=== PATIENT | female | born 1945 | race Caucasian/White ===

== ENCOUNTER 2017-06-28 18:48 | Emergency (ER) | payer MEDICARE, OTHER ==
[~2017-06-28] VITALS: Ht 160 cm; Wt 65.0 kg
[~2017-06-28 18:48] MED LIST: ADVAI100I PO; ALBU1AER INH; ATOR20TA PO; CITA20TA4 PO; LORA0.5T PO; PROT40TA PO; TRAZ50TA4 PO; VIST25CA PO
[2017-06-28 19:14] VITALS: BP 126/58; PULSE 69; RESP 20; TEMP 98.3; O2SAT 97
--- NOTE | 2017-06-28 19:26 | PD ---
HPI Chief Complaint: Respiratory Distress Time Seen by Provider: 19:20 Travel History International Travel<30 days: No Contact w/Intl Traveler<30days: No Traveled to known affect area: No History of Present Illness HPI 71-year-old female presents to the emergency department from home by EMS transport for complaint of nausea inability to eat with anorexia chronic lower abdominal pain shortness of breath intermittent left-sided chest pain and chronic low back pain. Patient has history of COPD anxiety depression dyslipidemia GERD peptic ulcer disease status post partial hysterectomy and lumpectomy ongoing tobacco use and denies any known history of hypertension diabetes or CAD. No new pleuritic pain or hemoptysis. No new lower extremity pain or swelling. No report of long distance travel protracted bedrest her surgical procedure. Patient denies any fever or chills. Patient has intermittent issues with constipation. Patient was able pass a small amount of stool today and no gross blood or melena. Patient's had no hemoptysis or hematemesis. Patient states she's had no urinary issues. Patient rates her overall discomfort 7/10 in intensity. Denies any chest pain at this time. Symptoms have been present 3 days. PFSH Past Medical History Narrative Medical COPD bipolar anxiety depression dyslipidemia GERD peptic ulcer disease chronic back pain partial hysterectomy tobaccoism;nursing notes reviewed Asthma: Yes Autoimmune Disease: No Blood Disorders: No Bipolar Disorder: Yes Anxiety: Yes Depression: Yes Cancer: No Cardiovascular Problems: Yes High Cholesterol: Yes Cirrhosis: Yes COPD: Yes Diabetes: No Diminished Hearing: No Endocrine: No Gastrointestinal Disorders: Yes GERD: Yes Genitourinary: Yes Headaches: Yes Immune Disorder: No Kidney Stones: No Musculoskeletal: Yes (upper back pain ) Neurologic: No Psychiatric: Yes Reproductive: Yes (partial hyst. ) Respiratory: Yes (COPD) Seizures: No Sleep Apnea: No PNEUMOCCOCAL Vaccine (Year): 2 Menopausal: Yes : 2 Para: 2 Past Surgical History Gynecologic Surgery: Yes (partial hystectomy ) Hysterectomy: Yes Other Surgery: Yes (LUMPECTOMY) Social History Alcohol Use: No Tobacco Use: Yes (1/2 PPD) Substance Use: No Allergies-Medications (Allergen,Severity, Reaction): Coded Allergies: ampicillin (Unverified Allergy, Severe, 05/12/17) hydrocodone (Unverified Allergy, Severe, ITCHING, 05/12/17) oxycodone (Unverified Allergy, Severe, ITCHING, 05/12/17) amoxicillin (Unverified Allergy, Mild, Itching, 05/12/17) Reported Meds & Prescriptions Reported Meds & Active Scripts Active Phenergan (Promethazine HCl) 25 Mg Tablet 25 Mg PO Q6H PRN Medrol Dosepak (Methylprednisolone) 4 Mg Dspk 4 Mg PO DIRECTED Per Pharmacist direction Protonix (Pantoprazole Sodium) 40 Mg Tab 40 Mg PO BID 30 Days Vistaril (Hydroxyzine Pamoate) 25 Mg Cap 25 Mg PO Q8H PRN Trazodone Hcl (Trazodone HCl) 50 Mg Tab 50 Mg PO HS 5 Days Reported Lorazepam 0.5 Mg Tab 0.5 Mg PO TID Citalopram Hydrobromide 20 Mg Tab 20 Mg PO DAILY Proair Hfa (Albuterol Sulfate) 8.5 Gm Aero 2 Puff INH Q6 * SHAKE WELL BEFORE USE * Advair Diskus 100/50 (Salmeterol Xinafoate/Fluticasone) Fluticasone/Salmeterol 100/50 Inh 1 Puff PO BID Atorvastatin 20 mg tab (Atorvastatin Calcium) 20 Mg Tab 20 Mg PO HS Review of Systems Except as stated in HPI: all other systems reviewed are Neg General / Constitutional: No: Fever, Chills Eyes: No: Visual changes HENT: No: Headaches, Congestion Cardiovascular: Positive: Chest Pain or Discomfort, No: Diaphoresis ( intermittent none now), Syncope, Dyspnea on exertion, Claudication Respiratory: Positive: Cough, Shortness of Breath, Wheezing Gastrointestinal: Positive: Nausea, Abdominal Pain, Constipation, Loss of Appetite, No: Vomiting, Diarrhea, Hematemesis, Hematochezia Genitourinary: No: Urgency, Frequency, Dysuria, Flank Pain Musculoskeletal: No: Myalgias, Arthralgias Skin: No Rash Neurologic: No: Weakness, Dizziness, Syncope, Focal Abnormalities, Coordination Problem Psychiatric: No: Anxiety Endocrine: No: Heat Intolerance Hematologic/Lymphatic: No: Easy Bruising Physical Exam Narrative GENERAL: Well-developed thin female in no acute distress no respiratory distress SKIN: Warm and dry. HEAD: Normocephalic. EYES: No scleral icterus. No injection or drainage. NECK: Supple, trachea midline. No JVD or lymphadenopathy. CARDIOVASCULAR: Regular rate and rhythm without murmurs, gallops, or rubs. RESPIRATORY: Breath sounds equal bilaterally diffuse expiratory wheezing. No accessory muscle use. GASTROINTESTINAL: Abdomen soft, non-tender, nondistended. Rectal exam: No fissure no prolapsed hemorrhoids; normal sphincter tone; brown mucus on exam glove, Hemoccult negative no gross blood. MUSCULOSKELETAL: No cyanosis, or edema. BACK: Nontender without obvious deformity. No CVA tenderness. Data Data Last Documented VS Vital Signs Date Time Temp Pulse Resp B/P (MAP) Pulse Ox O2 Delivery O2 Flow Rate FiO2 06/28/17 21:15 67 20 111/55 (73) 96 Nasal Cannula 2.00 06/28/17 19:14 98.3 Orders Orders Complete Blood Count With Diff (06/28/17 19:21) Comprehensive Metabolic Panel (06/28/17 19:21) B-Type Natriuretic Peptide (06/28/17 19:21) Magnesium (Mg) (06/28/17 19:21) Ckmb (Isoenzyme) Profile (06/28/17 19:21) Troponin I (06/28/17 19:21) Urinalysis - C+S If Indicated (06/28/17 19:21) Iv Access Insert/Monitor (06/28/17 19:21) Electrocardiogram (06/28/17 19:21) Ecg Monitoring (06/28/17 19:21) Oximetry (06/28/17 19:21) Oxygen Administration (06/28/17 19:21) Chest, Single Ap (06/28/17 19:21) Sodium Chloride 0.9% Flush (Ns Flush) (06/28/17 19:30) Albuterol-Ipratropium Neb (Duoneb Neb) (06/28/17 19:30) Ondansetron Inj (Zofran Inj) (06/28/17 19:30) CKMB (06/28/17 19:36) CKMB% (06/28/17 19:36) Sodium Chlorid 0.9% 500 Ml Inj (Ns 500 M (06/28/17 21:30) Labs Laboratory Tests Test 06/28/17 19:36 06/28/17 20:09 06/28/17 20:15 Blood Urea Nitrogen 18 MG/DL Creatinine 1.05 MG/DL Random Glucose 99 MG/DL Total Protein 6.9 GM/DL Albumin 3.8 GM/DL Calcium Level 8.9 MG/DL Magnesium Level 1.9 MG/DL Alkaline Phosphatase 103 U/L Aspartate Amino Transf (AST/SGOT) 22 U/L Alanine Aminotransferase (ALT/SGPT) 25 U/L Total Bilirubin 0.4 MG/DL Sodium Level 141 MEQ/L Potassium Level 3.9 MEQ/L Chloride Level 108 MEQ/L Carbon Dioxide Level 22.0 MEQ/L Anion Gap 11 MEQ/L Estimat Glomerular Filtration Rate 52 ML/MIN Total Creatine Kinase 127 U/L Creatine Kinase MB 2.7 NG/ML Troponin I LESS THAN 0.02 NG/ML Urine Color YELLOW Urine Turbidity HAZY Urine pH 6.0 Urine Specific Parachute 1.023 Urine Protein TRACE mg/dL Urine Glucose (UA) NEG mg/dL Urine Ketones 40 mg/dL Urine Occult Blood NEG Urine Nitrite NEG Urine Bilirubin NEG Urine Urobilinogen LESS THAN 2.0 MG/DL Urine Leukocyte Esterase NEG Urine RBC 6 /hpf Urine WBC 2 /hpf Urine Squamous Epithelial Cells 2 /hpf Urine Amorphous Sediment RARE Urine Bacteria OCC /hpf Urine Mucus MOD /lpf Microscopic Urinalysis Comment CULT NOT INDICATED White Blood Count 8.0 TH/MM3 Red Blood Count 4.15 MIL/MM3 Hemoglobin 9.6 GM/DL Hematocrit 30.5 % Mean Corpuscular Volume 73.4 FL Mean Corpuscular Hemoglobin 23.1 PG Mean Corpuscular Hemoglobin Concent 31.5 % Red Cell Distribution Width 19.0 % Platelet Count 206 TH/MM3 Mean Platelet Volume 7.5 FL Neutrophils (%) (Auto) 78.6 % Lymphocytes (%) (Auto) 16.3 % Monocytes (%) (Auto) 3.9 % Eosinophils (%) (Auto) 0.4 % Basophils (%) (Auto) 0.8 % Neutrophils # (Auto) 6.3 TH/MM3 Lymphocytes # (Auto) 1.3 TH/MM3 Monocytes # (Auto) 0.3 TH/MM3 Eosinophils # (Auto) 0.0 TH/MM3 Basophils # (Auto) 0.1 TH/MM3 CBC Comment DIFF FINAL Differential Comment B-Type Natriuretic Peptide LESS THAN 2 PG/ML MDM Medical Decision Making Medical Screen Exam Complete: Yes Emergency Medical Condition: Yes Medical Record Reviewed: Yes Interpretation(s) CBC & BMP Diagram 06/28/17 19:36 Total Protein 6.9, Albumin 3.8, Calcium Level 8.9, Magnesium Level 1.9, Alkaline Phosphatase 103, Aspartate Amino Transf (AST/SGOT) 22, Alanine Aminotransferase (ALT/SGPT) 25, Total Bilirubin 0.4 06/28/17 20:15 Vital Signs Date Time Temp Pulse Resp B/P (MAP) Pulse Ox O2 Delivery O2 Flow Rate FiO2 06/28/17 19:39 98 Nasal Cannula 2.00 06/28/17 19:39 98 Nasal Cannula 2.00 06/28/17 19:35 98 Nasal Cannula 2.00 06/28/17 19:14 98.3 69 20 126/58 (80) 97 cxr: nad, per reading radiologist Dr. Riggins reviewed by me EKG: Sinus rhythm rate [address] segment elevation or injury pattern or ectopy noted CK: 127, not elevated; troponin I less than 0.02, not elevated BNP less than 2 not elevated Differential Diagnosis Dyspnea, exacerbation COPD, pneumonia, ACS, constipation, anemia, atypical chest pain, abdominal pain, appendicitis, diverticulitis, UTI, sepsis Narrative Course Patient placed on swimming professor IV access obtained specimens collected and sent for resulting EKG ordered patient ordered DuoNeb updraft 1 for wheezing and Zofran for complaint of nausea EKG: Sinus rhythm rate [address] segment elevation or injury pattern or ectopy noted Patient identified to have anemia by CBC was automated differential hemoglobin 9.61 year ago was 10.6 rectal exam is negative for occult blood and indices are consistent with chronic anemia Metabolic panel values grossly normal range creatinine however mildly elevated 1.05 Patient up out of bed ambulating in room no complaint of pain does complain of some generalized weakness: Has not eating today secondary to poor appetite some : Patient now is desirous of attempting oral hydration. On reexamination lung sounds clear to auscultation. Patient able to tolerate oral fluids well; stable for outpatient management and scheduled follow up with PCP Thursday Diagnosis Primary Impression: Anemia Additional Impressions: COPD (chronic obstructive pulmonary disease) H/O constipation Referrals: Primary Care Physician 3 days Keep current appointment as scheduled 07/01/17 Patient Instructions: General Instructions Additional Instructions: Increase fluid hydration May add MiraLax to bowel regimen to assist with constipation issues; add dietary fiber to daily intake Take Phenergan as prescribed as needed for nausea and/or vomiting Monitor temperature every 4 hours with thermometer take acetaminophen/Tylenol as needed for fever 100.4F or greater Use albuterol inhaler as needed for wheezing or shortness of breath Complete course of steroid Keep appointment as scheduled with her primary care provider July 01, 2017 Return to the emergency department for any concerns or change in condition Discontinue tobacco use Med/Other Pt SpecificInfo: Prescription(s) given Scripts Promethazine (Phenergan) 25 Mg Tablet 25 MG PO Q6H Y for NAUSEA OR VOMITING, #7 TAB 0 Refills Prov: Lilian Whitley MD 06/28/17 Methylprednisolone Dosepak (Medrol Dosepak) 4 Mg Dspk 4 MG PO DIRECTED, #1 DSPK 0 Refills Per Pharmacist direction Prov: Lilian Whitley MD 06/28/17 Disposition: 01 DISCHARGE HOME Condition: Stable Lilian Whitley MD Jun 28, 2017 19:26
[2017-06-28] MEDS ORDERED: RESP: ALBUTEROL 2.5 MG/IPRATROPIUM 0.5 MG NEB (SCH) INH ONE (19:30)
[2017-06-28] MEDS ORDERED: SODIUM CHLORIDE 0.9% FLUSH 10 ML FLUSH IVF PRN (19:30)
[2017-06-28] MEDS ORDERED: ONDANSETRON HCL 4 MG/2 ML VIAL IV PUSH ONE (19:30)
[2017-06-28 19:35] VITALS: O2SAT 98
[2017-06-28 19:39] VITALS: O2SAT 98
--- NOTE | 2017-06-28 19:47 | RADRPT ---
EXAM DATE/TIME: 06/28/2017 19:37 [facility] COMPARISON: CHEST SINGLE AP, June 29, 2016, 19:57. INDICATIONS : Shortness of breath and chest pain. MEDICAL HISTORY : Chronic obstructive pulmonary disease. SURGICAL HISTORY : None. ENCOUNTER: Initial ACUITY: 1 day PAIN SCORE: 5/10 LOCATION: Bilateral chest FINDINGS: A single view of the chest demonstrates the lungs to be symmetrically aerated without evidence of mas s, infiltrate or effusion. The cardiomediastinal contours are unremarkable. Osseous structures are intact. CONCLUSION: The lungs are clear. Amol Riggins MD on June 28, 2017 at 19:46 Board Certified Radiologist. This report was verified electronically.
[2017-06-28 20:33] LABS: AUTOMATED NEUTROPHIL # 6.3 TH/MM3 (1.8-7.7); BASOPHIL # 0.1 TH/MM3 (0-0.2); BASOPHIL % 0.8 % (0.0-2.0); EOSINOPHIL % 0.4 % (0.0-4.0); HEMATOCRIT 30.5 % (35.0-46.0); HEMO FLAGS DIFF FINAL; LYMPH % 16.3 % (9.0-44.0); LYMPHOCYTE # 1.3 TH/MM3 (1.0-4.8); MEAN CELL VOLUME 73.4 FL (80.0-100.0); MEAN CORPUSCULAR HEMOGLOBIN 23.1 PG (27.0-34.0); MEAN CORPUSCULAR HGB CONC 31.5 % (32.0-36.0); MONO % 3.9 % (0.0-8.0); NEUT % 78.6 % (16.0-70.0); PLATELET COUNT 206 TH/MM3 (150-450); RED BLOOD COUNT 4.15 MIL/MM3 (4.00-5.30)
[2017-06-28 20:35] LABS: BACTERIA, URINE OCC /hpf; BLOOD, URINE NEG (NEG); COMMENT (UR) CULT NOT INDICATED; CULTURE IF INDICATED CULT NOT INDICATED; GLUCOSE,URINE NEG (NEG); KETONE, URINE 40 mg/dL (NEG); MUCUS URINE MOD /lpf (OCC); NITRITE,URINE NEG (NEG); SQUAMOUS EPITHELIAL CELL URINE 2 /hpf (0-5); URINE COLOR YELLOW (YELLW/STRAW)
[2017-06-28 20:51] LABS: ALT (GPT) 25 U/L (10-53); ANION GAP 11 MEQ/L (5-15); AST (GOT) 22 U/L (15-37); BLOOD UREA NITROGEN 18 MG/DL (7-18); CHLORIDE 108 MEQ/L (98-107); GLOMERULAR FILTRATION RATE 52 ML/MIN (>89); MAGNESIUM 1.9 MG/DL (1.5-2.5); POTASSIUM 3.9 MEQ/L (3.5-5.1); SODIUM (NA) 141 MEQ/L (136-145)
[2017-06-28 20:56] LABS: ALKALINE PHOSPHATASE 103 U/L (45-117); CREATINE KINASE 127 U/L (26-192); TOTAL BILIRUBIN ADULT 0.4 MG/DL (0.2-1.0)
[2017-06-28 21:08] LABS: CKMB 2.7 NG/ML (0.5-3.6)
[2017-06-28 21:15] VITALS: BP 111/55; PULSE 67; RESP 20; O2SAT 96
[2017-06-28] MEDS ORDERED: MEDR4PAK PO (21:21)
[2017-06-28] MEDS ORDERED: PROM25TA10 PO (21:21)
[2017-06-28] MEDS ORDERED: SODIUM CHLORID 0.9% 500 ML INJ 500 ML IV ONE (21:30)
[2017-06-28 22:30] VITALS: BP 125/58
--- NOTE | 2017-06-29 19:30 | EKG ---
Date Performed: 06/28/2017 Time Performed: 21:01:12 PTAGE: 71 years EKG: Sinus rhythm WITH SHORT NC INTERVAL BORDERLINE ECG NO PREVIOUS TRACING DOCTOR: Fernando Wolf Interpretating Date/Time 06/29/2017 19:28:28
== END 2017-06-28 23:48 | disposition home or self-care (01) ==
LOC: NEPC 18:48
DX: D64.9 Anemia, unspecified (principal); J44.9 Chronic obstructive pulmonary disease, unspecified; F17.200 Nicotine dependence, unspecified, uncomplicated; Z79.899 Other long term (current) drug therapy
CPT/HCPCS: 71010; 80053; 81001; 82550; 82552; 83735; 83880; 84484; 85025; 93005; 94664; 96361; 96374; 99284; J2405; J7040